=== PATIENT | male | born 1960 | race Caucasian/White ===

== ENCOUNTER → 2019-08-25 12:53 | Outpatient (BNVA) | payer MEDICARE, MEDICAID, SELFPAY | PROVIDERS: Family Provider Nurse Practitioner Family; PCP Nurse Practitioner Family; Visit Provider Specialist | DX: H55.09 Other forms of nystagmus (principal); H57.9 Unspecified disorder of eye and adnexa | CPT/HCPCS: 99213 ==

== ENCOUNTER → 2021-07-17 09:35 | Outpatient (BNVA) | payer MEDICARE, MEDICAID, SELFPAY | PROVIDERS: Family Provider Nurse Practitioner Family; PCP Nurse Practitioner Family; Visit Provider Specialist | DX: G35 Multiple sclerosis (principal); H55.09 Other forms of nystagmus | CPT/HCPCS: 99213 ==

== ENCOUNTER → 2022-07-17 08:52 | Outpatient (BNVA) | payer MEDICARE, MEDICAID, SELFPAY | PROVIDERS: Family Provider Nurse Practitioner Family; PCP Nurse Practitioner Family; Visit Provider Specialist | DX: G35 Multiple sclerosis (principal); Z79.899 Other long term (current) drug therapy; R26.89 Other abnormalities of gait and mobility | CPT/HCPCS: 99213 ==

== ENCOUNTER → 2023-07-17 11:37 | Outpatient (BNVA) | payer MEDICARE, SELFPAY | PROVIDERS: Family Provider Nurse Practitioner Family; PCP Nurse Practitioner Family; Visit Provider Specialist | DX: G35 Multiple sclerosis (principal); R29.90 Unspecified symptoms and signs involving the nervous system; H55.09 Other forms of nystagmus | CPT/HCPCS: 99213 ==

== ENCOUNTER → 2024-07-15 11:56 | Outpatient (BNVA) | payer MEDICARE, MEDICAID, SELFPAY | PROVIDERS: Family Provider Nurse Practitioner Family; PCP Nurse Practitioner Family; Visit Provider Specialist | DX: R29.90 Unspecified symptoms and signs involving the nervous system (principal); H55.09 Other forms of nystagmus; G35 Multiple sclerosis; Z87.891 Personal history of nicotine dependence | CPT/HCPCS: 99213 ==